=== PATIENT | female | born 1950 | race Caucasian/White ===

== ENCOUNTER 2020-04-18 12:36 | Day surgery (SDC) | payer MEDICARE ==
[2020-04-18 13:49] VITALS: BMI 19.9
[2020-04-18 13:55] VITALS: BP 133/57; TEMP 97.6
--- NOTE | 2020-04-18 13:58 | ULT ---
Fine-needle aspiration of left thyroid nodule: 04/18/2020 HISTORY: Palpable abnormality within the left neck demonstrated to be a thyroid lesion on CT performe d 03/09/2020 FINDINGS: Informed consent for fine needle aspiration of left thyroid nodule obtained prior to the pr ocedure. Preprocedural imaging demonstrates a complex solid and cystic nodule within the left lobe of the thyr oid gland involving the majority of the mid and lower pole, which measures at least 1.8 x 1.2 x 2.7 cm. It demonstrates internal solid components as well as cystic components. Skin overlying this lesion was prepped and draped in normal sterile fashion and the skin was anesthet ized with 1% buffered lidocaine. With direct sonographic guidance, 4 25-gauge fine-needle aspirations were obtained. Different portion s of the lesion or sampled, including the superior mid and inferior components. The patient tolerated the procedure well. No postprocedural complications. Postprocedural imaging demonstrates no adverse features. IMPRESSION: Successful fine-needle aspiration of complex solid and cystic dominant nodule within the mid/lower aspect of the left lobe of the thyroid gland.
== END 2020-04-18 14:00 | disposition home or self-care (01) ==
LOC: ULT 12:36
PROVIDERS: ATTEND Otolaryngology Plastic Surgery within the Head & Neck
PROC: 0G9G3ZX Drainage of Left Thyroid Gland Lobe, Percutaneous Approach, Diagnostic (ICD-10-PCS; principal; 2020-04-18)
DX: E04.1 Nontoxic single thyroid nodule (principal); Z79.899 Other long term (current) drug therapy
CPT/HCPCS: 60100; 76942; 88173

== ENCOUNTER 2020-05-02 08:24 | Day surgery (SDC) | payer MEDICARE ==
[2020-05-02 09:17] LABS: Hemoglobin 14.2 g/dL (12.0-16.0)
[2020-05-02] MEDS ORDERED: Lidocaine 1% PF 5 ML VIAL ONE (09:27)
[2020-05-02] MEDS ORDERED: Metoclopramide HCl 10 MG/2 ML VIAL ONE (09:27)
[2020-05-02] MEDS ORDERED: Ketorolac Tromethamine 30 MG/ML VIAL ONE (09:27)
[2020-05-02] MEDS ORDERED: PHENYLEPHRINE-NS 100 MCG/ML 10 ML SYRINGE ONE (09:27)
[2020-05-02] MEDS ORDERED: Ondansetron PF 4 MG/2 ML Vial ONE (09:27)
[2020-05-02] MEDS ORDERED: ePHEDrine 50 MG/ML VIAL ONE (09:27)
[2020-05-02] MEDS ORDERED: Dexamethasone 20 MG/5 ML VIAL ONE (09:27)
[2020-05-02] MEDS ORDERED: PROPOFOL 200 MG/20 ML VIAL ONE (09:27)
[2020-05-02 09:38] LABS: Anion Gap 12 mmol/L (10-20); BUN (Urea Nitrogen) 16 mg/dL (9.8-20.1); Calc. Creatinine Clearance 68 mL/min (70-130); Calcium 8.7 mg/dL (7.8-10.44); Carbon Dioxide 26 mmol/L (23-31); Chloride 106 mmol/L (98-107); Glucose 102 mg/dL (83-110); Potassium 4.1 mmol/L (3.5-5.1); Sodium 140 mmol/L (136-145)
[2020-05-02] MEDS ORDERED: XYLOCAINE 2%-EPI 1:100,000 20 ML VIAL ONE (10:33)
[2020-05-02] MEDS ORDERED: Famotidine/PF 20 mg/2ml Vial ONE (10:36)
[2020-05-02] MEDS ORDERED: Fentanyl 100 MCG/2 ML VIAL ONE (10:36)
--- NOTE | 2020-05-02 13:08 | OP ---
DATE OF PROCEDURE: 05/02/2020 PREOPERATIVE DIAGNOSES: 1. Left thyroid mass. 2. Dysphagia. POSTOPERATIVE DIAGNOSES: 1. Left thyroid mass. 2. Dysphagia. PROCEDURES PERFORMED: 1. Left thyroid lobectomy. 2. Intraoperative laryngeal nerve monitoring. ESTIMATED BLOOD LOSS: 10 mL. COMPLICATIONS: None. ANESTHESIA: GETA. DESCRIPTION OF PROCEDURE: The patient was taken to the operating room, placed supine on the table. General endotracheal anesthesia was obtained by the Anesthesia Staff. Using the GlideScope and direct visualization of the vocal cords was used to confirm the location of the laryngeal electrodes and a proper placement. Following this, the tube was secured to the midline of the upper lip. A shoulder roll was placed. The patient was prepped and draped in standard surgical fashion. Following this, 8 mL of 1% lidocaine with 1:100,000 epinephrine was injected into the area overlying the left thyroid lobe. A previous thyroid incision scar was used to make an incision using a 15 blade through skin, subcutaneous tissue, and the platysmal layer. Subplatysmal flaps were elevated superiorly to the level of the thyroid notch and inferiorly to the clavicles. Following this, the strap muscles were identified in the midline. The strap muscles were noted to be very scarred to the trachea from previous radiation to the surgery. The strap muscles were freed from the left thyroid lobe and dissection was performed over the thyroid lobe and staying medially adjacent to the capsule of the thyroid. The left recurrent laryngeal nerve was noted to be coursing approximately 15 degrees from the tracheoesophageal groove. The nerve was identified and was protected as the gland was freed from its attachments in this area. The inferior thyroid artery was suture ligated and the inferior parathyroid gland was identified and was protected throughout the procedure. The gland was then allowed to be displaced inferiorly and the superior vascular pedicle of the thyroid at the left thyroid lobe was then suture ligated medially adjacent to the thyroid capsule. This allowed for removal of the thyroid gland on this left side. The wound was then irrigated and a drain was placed. The strap muscles were closed using Monocryl stitches as well as the platysmal layer and subcuticular layer. Dermabond was placed on the skin. The patient was extubated without complications. The drain was working at the end of the procedure. Job ID: [id number]
== END 2020-05-02 14:40 | disposition home or self-care (01) ==
LOC: SDC 08:24
PROVIDERS: ATTEND Otolaryngology Plastic Surgery within the Head & Neck
PROC: 0GTG0ZZ Resection of Left Thyroid Gland Lobe, Open Approach (ICD-10-PCS; principal; 2020-05-02)
DX: E04.2 Nontoxic multinodular goiter (principal); Z92.3 Personal history of irradiation; Z79.899 Other long term (current) drug therapy
CPT/HCPCS: 36415; 80048; 83970; 85014; 85018; 88307; 88341; 88342; 93005; 93010; J1100; J1885; J2405; J2704; J2765; J3010; J3490; S0028